=== PATIENT | female | born 1975 | race African-American/Black ===

== ENCOUNTER 2017-07-05 07:59 | Outpatient (CLI) | payer OTHER ==
--- NOTE | 2017-07-06 08:26 | Mammography Report ---
BILATERAL DIGITAL SCREENING MAMMOGRAM with CAD: 07/05/17 07:59:00 CLINICAL: Routine screening. COMPARISON:07/13/15 FINDINGS: The breasts are heterogeneously dense. A right upper inner focal asymmetry requires additional imaging.No architectural distortion or suspicious calcifications.The left breast is negative. IMPRESSION: Right asymmetry requiring further workup. BI-RADS CATEGORY: 0 -- Additional Imaging Evaluation Required RECOMMENDATION: Recall for right lateralmedial , spot magnification CC and MLO views and right breast ultrasound. ACR BI-RADS MAMMOGRAPHIC CODES: 0 = Needs additional imaging evaluation; 1 = Negative; 2 = Benign; 3 = Probably benign; 4 = Suspicious; 5 = Malignant; 6 = Known biopsy-proven malignancy COMMENT: 1. Dense breast tissue, i.e., adenosis, fibrocystic changes, etc., may obscure an underlying neoplasm. 2. Approximately 10% of cancers are not detected with mammography. 3. A negative mammography report should not delay biopsy if a clinically suspicious mass is present. COMMENT: Patient follow-up letters are generated via our [employer] application.
== END 2017-07-05 08:00 | disposition home or self-care (01) ==
LOC: MAMMO 07:59
PROVIDERS: ATTEND Obstetrics & Gynecology
DX: Z12.31 Encounter for screening mammogram for malignant neoplasm of breast (principal)
CPT/HCPCS: 77067; G0202

== ENCOUNTER 2018-07-30 08:06 | Outpatient (CLI) | payer OTHER ==
--- NOTE | 2018-07-30 15:39 | Mammography Report ---
BILATERAL DIGITAL SCREENING MAMMOGRAM with CAD and BILATERAL DIGITAL BREAST TOMOSYNTHESIS (DBT) : 07/30/18 CLINICAL: Routine screening. COMPARISON:07/05/17 and 07/13/15 FINDINGS: There are bilateral scattered fibroglandular densities. An irregular shaped right inner asymmetry on the CC kumar image 43 requires additional imaging. No definite correlation on MLO views. No architectural distortion or suspicious calcifications. The left breast is negative. IMPRESSION: Right asymmetry requiring additional workup. BI-RADS CATEGORY: 0 - - Needs Additional Imaging RECOMMENDATION: Recall for right lateralmedial and spot magnification right CC views and right breast ultrasound is needed. Since COMMENT: Patient follow-up letters are generated by our [employer] application.
== END 2018-07-30 08:07 | disposition home or self-care (01) ==
LOC: SPVWC 08:06
PROVIDERS: ATTEND Obstetrics & Gynecology
DX: Z12.31 Encounter for screening mammogram for malignant neoplasm of breast (principal)
CPT/HCPCS: 77063; 77067

== ENCOUNTER 2019-08-26 09:11 | Outpatient (CLI) | payer OTHER ==
--- NOTE | 2019-08-26 11:46 | Mammography Report ---
DIGITAL SCREENING MAMMOGRAM WITH CAD, 08/26/2019 INDICATION: Routine screening mammography. TECHNIQUE: Digital bilateral 2D mammography was obtained in the craniocaudal and mediolateral obliq ue projections. This examination was interpreted with the benefit of Computer-Aided Detection analysi s. COMPARISON: 07/30/2018 FINDINGS: Breast Density: The breasts are heterogeneously dense, which may obscure small masses. There is no evidence of dominant mass, suspicious calcifications or architectural distortion in eithe r breast. IMPRESSION: No mammographic evidence of malignancy. Follow up recommendation: Routine yearly BI-RADS Category 1: Negative. A "normal" or negative report should not discourage follow up or biopsy of a clinically significant f inding. A written summary of these findings will be mailed to the patient. The patient will be entered into a mammography reporting system which will generate a reminder letter for the patient's next appointmen t at the appropriate interval. The [employer] recommends yearly mammograms starting at age 40 and continuing as l mireya as a woman is in good health. Breast MRI is recommended for women with an approximate 20-25% or greater lifetime risk of breast cancer, including women with a strong family history of breast or ova johnnie cancer or who have been treated for Hodgkin's disease. Signer Name: Jon Howe MD Signed: 08/26/2019 11:42 AM Workstation Name: [id number]
== END 2019-08-26 09:12 | disposition home or self-care (01) ==
LOC: SPVWC 09:11
PROVIDERS: ATTEND Obstetrics & Gynecology
DX: Z12.31 Encounter for screening mammogram for malignant neoplasm of breast (principal)
CPT/HCPCS: 77067

== ENCOUNTER 2021-04-01 09:32 | Outpatient (CLI) | payer OTHER ==
--- NOTE | 2021-04-01 11:12 | Mammography Report ---
DIGITAL SCREENING MAMMOGRAM WITH TOMOSYNTHESIS WITH CAD, 04/01/2021 CLINICAL INFORMATION / INDICATION: Routine Screening Mammography. TECHNIQUE: Digital bilateral 2D and 3D mammography with tomosynthesis was obtained in the craniocaud al and mediolateral oblique projections. Computer-Aided Detection (CAD) analysis was used for interp retation of this study. COMPARISON: 08/26/2019, 07/30/2018 FINDINGS: Breast Density: There are scattered areas of fibroglandular density. No dominant mass, suspicious calcifications, or architectural distortion in either breast. No interval change. IMPRESSION: No mammographic evidence of malignancy. Follow up recommendation: Routine yearly BI-RADS Category 1: Negative. A "normal" or negative report should not discourage follow up or biopsy of a clinically significant f inding. A written summary of these findings will be mailed to the patient. The patient will be entered into a mammography reporting system which will generate a reminder letter for the patient's next appointmen t at the appropriate interval. The [employer] recommends yearly mammograms starting at age 40 and continuing as l mireya as a woman is in good health. Breast MRI is recommended for women with an approximate 20-25% or greater lifetime risk of breast cancer, including women with a strong family history of breast or ova johnnie cancer or who have been treated for Hodgkin's disease. Signer Name: Eloise Maravilla MD Signed: 04/01/2021 11:08 AM Workstation Name: [id number]
== END 2021-04-01 09:33 | disposition home or self-care (01) ==
LOC: SPVWC 09:32
PROVIDERS: ATTEND Obstetrics & Gynecology
DX: Z12.31 Encounter for screening mammogram for malignant neoplasm of breast (principal)
CPT/HCPCS: 77063; 77067